=== PATIENT | male | born 1950 | race Caucasian/White ===

== ENCOUNTER 2016-10-22 03:15 | Emergency (ER) | payer MEDICARE, MEDICAID ==
[2016-10-22] MEDS ORDERED: Lorazepam 2 MG/ML VIAL ONE (03:49)
[2016-10-22] MEDS ORDERED: Sodium Chloride 0.9% 500 ML ONE (03:53)
[2016-10-22 04:06] LABS: ALT (SGPT) 101 U/L (0-55); AST (SGOT) 108 U/L (5-34); Albumin 4.4 g/dL (3.4-4.8); Alkaline Phosphatase 101 U/L (40-150); Anion Gap 20 mmol/L (10-20); BUN (Urea Nitrogen) 15 mg/dL (8.4-25.7); Calc. Creatinine Clearance 0 mL/min (70-130); Calcium 9.3 mg/dL (7.8-10.44); Carbon Dioxide 17 mmol/L (23-31); Chloride 109 mmol/L (98-107); Estimated GFR-MDRD 66; Globulin 3.9 g/dL (2.4-3.5); Glucose 100 mg/dL (80-115); Potassium 4.3 mmol/L (3.5-5.1); Protein, Total 8.3 g/dL (5.8-8.1); Sodium 142 mmol/L (136-145)
[2016-10-22 04:10] LABS: CKMB 1.1 ng/mL (0-6.6); Troponin I Less than 0.010 ng/mL (< 0.028)
[2016-10-22 04:14] LABS: Band 9 % (5-11); Eosinophils 9 % (0-10); Hemoglobin 13.4 g/dL (14.0-18.0); Lymphocytes 36 % (21-51); MDiff Complete? YES; Mean Corpuscular Volume 96.9 fl (80.0-94.0); Mean Platelet Volume 8.6 fL (7.4-10.4); Monocytes 8 % (0-10); Neutrophil 38 % (42-75); PLT Morphology Comment Appears Adequate; Platelet Count 170 thou/uL (130-400); RBC Distribution Width 14.3 % (11.5-14.5); RBC Morphology Normal; Red Blood Cell (RBC) Count 4.08 mill/uL (4.70-6.10); White Blood Cell (WBC) Count 6.7 thou/uL (4.8-10.8)
--- NOTE | 2016-10-22 08:02 | RAD ---
PORTABLE CHEST: Date: 10/22/16 HISTORY: Chest pain. FINDINGS: Lungs are clear. No infiltrate seen. Vascular markings are normal. Heart and mediastinum unremarkabl e. IMPRESSION: No acute findings. POS: [facility]
== END 2016-10-22 06:45 | disposition home or self-care (01) ==
LOC: NAV ERS 03:15
DX: R07.9 Chest pain, unspecified (principal); F10.10 Alcohol abuse, uncomplicated; I25.10 Atherosclerotic heart disease of native coronary artery without angina pectoris; K74.60 Unspecified cirrhosis of liver; B19.20 Unspecified viral hepatitis C without hepatic coma; J44.9 Chronic obstructive pulmonary disease, unspecified; F17.210 Nicotine dependence, cigarettes, uncomplicated; Z79.899 Other long term (current) drug therapy
CPT/HCPCS: 71010; 80053; 80307; 82553; 84484; 85025; 85379; 93005; 96361; 96374; J2060; J7050

== ENCOUNTER 2016-10-23 18:14 | Emergency (ER) | payer MEDICARE, OTHER ==
[2016-10-23] MEDS ORDERED: Lorazepam 2 MG/ML VIAL ONE (18:48)
[2016-10-23] MEDS ORDERED: Sodium Chloride 0.9% 1,000 ML ONE (18:49)
--- NOTE | 2016-10-23 19:00 | RAD ---
AP VIEW OF THE CHEST: 10/23/16 INDICATION: Tachycardia and heart palpitations. IMPRESSION: No acute cardiopulmonary abnormality. The examination is not appreciably changed from comparison carmine ed 10/22/16. POS: [facility]
[2016-10-23 19:29] LABS: ALT (SGPT) 75 U/L (0-55); AST (SGOT) 58 U/L (5-34); Alcohol Less than 10 mg/dL (Less than 10); Alkaline Phosphatase 88 U/L (40-150); Anion Gap 16 mmol/L (10-20); BUN (Urea Nitrogen) 16 mg/dL (8.4-25.7); Calc. Creatinine Clearance 0 mL/min (70-130); Calcium 9.5 mg/dL (7.8-10.44); Carbon Dioxide 19 mmol/L (23-31); Chloride 108 mmol/L (98-107); Estimated GFR-MDRD 89; Globulin 3.5 g/dL (2.4-3.5); Glucose 115 mg/dL (80-115); Magnesium 2.3 mg/dL (1.6-2.6); Potassium 4.1 mmol/L (3.5-5.1); Protein, Total 7.5 g/dL (5.8-8.1); Sodium 139 mmol/L (136-145)
[2016-10-23 19:48] LABS: Band 4 % (5-11); Lymphocytes 35 % (21-51); MDiff Complete? YES; Mean Corpuscular HGB CONC 34.9 g/dL (32.0-36.0); Mean Corpuscular Hemoglobin 33.5 pg (27.0-31.0); Mean Corpuscular Volume 95.7 fl (80.0-94.0); Mean Platelet Volume 8.5 fL (7.4-10.4); Monocytes 5 % (0-10); Neutrophil 55 % (42-75); PLT Morphology Comment Appears Adequate; Platelet Count 167 thou/uL (130-400); RBC Distribution Width 13.9 % (11.5-14.5); RBC Morphology Normal; Red Blood Cell (RBC) Count 3.59 mill/uL (4.70-6.10); White Blood Cell (WBC) Count 6.9 thou/uL (4.8-10.8)
[2016-10-23 19:54] LABS: Bilirubin Negative (Negative); Blood, Urine Negative (Negative); Clarity Clear (Clear); Glucose, Urine (Dipstick) Negative (Negative); Leukocyte Negative (Negative); Nitrite Negative (Negative); Protein, Urine (Dipstick) Negative (Neg-Trace); pH, Urine 5.5 (5.0-9.0)
[2016-10-23 19:55] LABS: Specific Gravity, Urine 1.004 (1.002-1.036)
[2016-10-23 20:02] LABS: Cocaine Metabolite Screen Detected (NotDetected); Methamphetamine Not Detected (NotDetected); Opiate Screen Not Detected (NotDetected); Phencyclidine (PCP) Not Detected (NotDetected); THC/Cannabinoid Screen Not Detected (NotDetected)
[2016-10-23 20:03] LABS: Amphetamine Not Detected (NotDetected); Barbiturates Screen Not Detected (NotDetected); Benzodiazepine Screen Not Detected (NotDetected); Medtox Control Line Valid? VALID (VALID); Methadone Not Detected (NotDetected); Oxycodone Screen Not Detected (NotDetected); Tricyclic Screen Not Detected (NotDetected)
[2016-10-23 20:26] LABS: Troponin I Less than 0.010 ng/mL (< 0.028)
== END 2016-10-23 23:31 | disposition home or self-care (01) ==
LOC: NAV ERS 18:14
DX: F10.10 Alcohol abuse, uncomplicated (principal); F14.10 Cocaine abuse, uncomplicated; F41.9 Anxiety disorder, unspecified; Z79.899 Other long term (current) drug therapy; I25.10 Atherosclerotic heart disease of native coronary artery without angina pectoris; I10 Essential (primary) hypertension; J44.9 Chronic obstructive pulmonary disease, unspecified; F17.210 Nicotine dependence, cigarettes, uncomplicated
CPT/HCPCS: 71010; 80053; 80306; 80307; 81003; 83735; 83880; 84443; 84484; 85025; 93005; 96361; 96374; J2060; J7050

== ENCOUNTER 2016-10-25 23:49 | Emergency (ER) | payer MEDICARE, MEDICAID ==
[2016-10-26 00:45] LABS: #Basophils 0.1 thou/uL (0.0-0.2); #Eosinphils 0.3 thou/uL (0.0-0.7); #Lymphocytes 3.8 thou/uL (1.20-3.40); #Monocytes 0.8 thou/uL (0.11-0.59); #Neutrophils 3.2 thou/uL (1.40-6.50); %Basophils 1.3 % (0.0-1.0); %Eosinophils 3.7 % (0.0-10.0); %Lymphocytes 46.5 % (21.0-51.0); %Monocytes 9.2 % (0.0-10.0); %Neutrophils 39.3 % (42.0-75.0); Hemoglobin 12.3 g/dL (14.0-18.0); Mean Corpuscular HGB CONC 34.5 g/dL (32.0-36.0); Mean Corpuscular Hemoglobin 33.1 pg (27.0-31.0); Platelet Count 167 thou/uL (130-400); RBC Distribution Width 13.4 % (11.5-14.5); Red Blood Cell (RBC) Count 3.71 mill/uL (4.70-6.10); White Blood Cell (WBC) Count 8.2 thou/uL (4.8-10.8)
[2016-10-26 01:07] LABS: CKMB 1.3 ng/mL (0-6.6); Troponin I Less than 0.010 ng/mL (< 0.028)
[2016-10-26 01:11] LABS: AST (SGOT) 53 U/L (5-34); Alkaline Phosphatase 90 U/L (40-150); Anion Gap 16 mmol/L (10-20); BUN (Urea Nitrogen) 14 mg/dL (8.4-25.7); Bilirubin, Total 0.8 mg/dL (0.2-1.2); Calc. Creatinine Clearance 0 mL/min (70-130); Calcium 9.3 mg/dL (7.8-10.44); Carbon Dioxide 20 mmol/L (23-31); Chloride 106 mmol/L (98-107); Estimated GFR-MDRD 80; Globulin 3.3 g/dL (2.4-3.5); Potassium 3.9 mmol/L (3.5-5.1); Protein, Total 7.3 g/dL (5.8-8.1); Sodium 138 mmol/L (136-145)
[2016-10-26 01:13] LABS: ALT (SGPT) 59 U/L (0-55); Glucose 98 mg/dL (80-115)
== END 2016-10-26 01:25 | disposition home or self-care (01) ==
LOC: NAV ERS 23:49
DX: J44.9 Chronic obstructive pulmonary disease, unspecified (principal); F41.9 Anxiety disorder, unspecified; F10.10 Alcohol abuse, uncomplicated; I10 Essential (primary) hypertension; F32.9 Major depressive disorder, single episode, unspecified; F17.210 Nicotine dependence, cigarettes, uncomplicated; Z79.899 Other long term (current) drug therapy
CPT/HCPCS: 36415; 80053; 82553; 84484; 85025; 93005; J7620

== ENCOUNTER 2016-10-30 12:01 | Emergency (ER) | payer MEDICARE, MEDICAID ==
[2016-10-30] MEDS ORDERED: cloNIDine HCl 0.1 MG TAB ONE (12:19)
== END 2016-10-30 12:57 | disposition home or self-care (01) ==
LOC: NAV ERS 12:01
DX: I10 Essential (primary) hypertension (principal); I25.10 Atherosclerotic heart disease of native coronary artery without angina pectoris; B19.20 Unspecified viral hepatitis C without hepatic coma; J44.9 Chronic obstructive pulmonary disease, unspecified; F17.210 Nicotine dependence, cigarettes, uncomplicated
CPT/HCPCS: 99283

== ENCOUNTER 2016-10-31 22:57 | Emergency (ER) | payer MEDICARE, MEDICAID | END 2016-11-01 00:45 | disposition home or self-care (01) | LOC: NAV ERS 22:57 | DX: F10.129 Alcohol abuse with intoxication, unspecified (principal); I25.10 Atherosclerotic heart disease of native coronary artery without angina pectoris; I10 Essential (primary) hypertension; G40.909 Epilepsy, unspecified, not intractable, without status epilepticus; J44.9 Chronic obstructive pulmonary disease, unspecified; K74.60 Unspecified cirrhosis of liver; F32.9 Major depressive disorder, single episode, unspecified; F41.9 Anxiety disorder, unspecified; Z87.891 Personal history of nicotine dependence; Z86.711 Personal history of pulmonary embolism; Z79.899 Other long term (current) drug therapy | CPT/HCPCS: 99283 ==

== ENCOUNTER 2016-11-04 10:22 | Emergency (ER) | payer MEDICARE, OTHER ==
[2016-11-04 11:33] LABS: #Basophils 0.1 thou/uL (0.0-0.2); #Eosinphils 0.2 thou/uL (0.0-0.7); #Lymphocytes 1.7 thou/uL (1.20-3.40); #Monocytes 0.4 thou/uL (0.11-0.59); #Neutrophils 4.5 thou/uL (1.40-6.50); %Lymphocytes 24.6 % (21.0-51.0); %Monocytes 5.2 % (0.0-10.0); %Neutrophils 65.3 % (42.0-75.0); Hemoglobin 14.1 g/dL (14.0-18.0); Mean Corpuscular HGB CONC 33.9 g/dL (32.0-36.0); Mean Corpuscular Hemoglobin 33.4 pg (27.0-31.0); Mean Corpuscular Volume 98.5 fl (80.0-94.0); Mean Platelet Volume 9.3 fL (7.4-10.4); Platelet Count 181 thou/uL (130-400); RBC Distribution Width 13.7 % (11.5-14.5); Red Blood Cell (RBC) Count 4.21 mill/uL (4.70-6.10); White Blood Cell (WBC) Count 6.9 thou/uL (4.8-10.8)
[2016-11-04 11:49] LABS: Acetaminophen Less than 3.0 mcg/mL (10.0-30.0); Alcohol Less than 10 mg/dL (Less than 10); Salicylate Less than 5.0 mg/dL (15.0-30.0)
[2016-11-04 11:51] LABS: ALT (SGPT) 45 U/L (0-55); AST (SGOT) 48 U/L (5-34); Albumin 4.2 g/dL (3.4-4.8); Alkaline Phosphatase 98 U/L (40-150); Anion Gap 19 mmol/L (10-20); BUN (Urea Nitrogen) 8 mg/dL (8.4-25.7); Bilirubin, Total 1.6 mg/dL (0.2-1.2); Calc. Creatinine Clearance 0 mL/min (70-130); Calcium 9.7 mg/dL (7.8-10.44); Carbon Dioxide 20 mmol/L (23-31); Chloride 105 mmol/L (98-107); Estimated GFR-MDRD 83; Glucose 119 mg/dL (80-115); Potassium 4.3 mmol/L (3.5-5.1); Protein, Total 8.2 g/dL (5.8-8.1); Sodium 140 mmol/L (136-145)
--- NOTE | 2016-11-04 11:53 | RAD ---
PORTABLE CHEST; Date: 11/04/16 HISTORY: Shortness of breath. COMPARISON: 10/23/16. FINDINGS: Heart size is within normal limits. There are atherosclerotic changes of the aorta. The lungs are cl ear of infiltrative process. IMPRESSION: No active intrathoracic disease. POS: [facility]
[2016-11-04 11:54] LABS: CKMB 2.1 ng/mL (0-6.6); Troponin I Less than 0.010 ng/mL (< 0.028)
[2016-11-04 12:29] LABS: Bilirubin Negative (Negative); Blood, Urine Negative (Negative); Clarity Clear (Clear); Glucose, Urine (Dipstick) Negative (Negative); Leukocyte Negative (Negative); Nitrite Negative (Negative); Protein, Urine (Dipstick) > or equal to 300 mg/dL (Neg-Trace)
[2016-11-04 12:51] LABS: Bacteria/HPF None Seen HPF (None Seen); RBC/HPF 0-3 HPF (0-3); Squamous Epithelial 0-3 HPF (0-3); WBC/HPF 0-3 HPF (0-3)
[2016-11-04 13:29] LABS: Amphetamine Not Detected (NotDetected); Barbiturates Screen Not Detected (NotDetected); Benzodiazepine Screen Not Detected (NotDetected); Cocaine Metabolite Screen Detected (NotDetected); Medtox Control Line Valid? VALID (VALID); Methadone Not Detected (NotDetected); Methamphetamine Not Detected (NotDetected); Opiate Screen Not Detected (NotDetected); Oxycodone Screen Not Detected (NotDetected); Phencyclidine (PCP) Not Detected (NotDetected); THC/Cannabinoid Screen Not Detected (NotDetected); Tricyclic Screen Not Detected (NotDetected)
== END 2016-11-04 13:05 | disposition home or self-care (01) ==
LOC: NAV ERS 10:22
DX: I10 Essential (primary) hypertension (principal); F14.10 Cocaine abuse, uncomplicated; I25.10 Atherosclerotic heart disease of native coronary artery without angina pectoris; K74.60 Unspecified cirrhosis of liver; J44.9 Chronic obstructive pulmonary disease, unspecified; Z86.711 Personal history of pulmonary embolism; Z79.899 Other long term (current) drug therapy
CPT/HCPCS: 71010; 80053; 80306; 80307; 81003; 81015; 82553; 83880; 84484; 85025; 93005

== ENCOUNTER 2016-11-23 12:27 | Outpatient (CLI) | payer MEDICARE, OTHER ==
[2016-11-23 13:53] LABS: Anion Gap 14 mmol/L (10-20); BUN (Urea Nitrogen) 22 mg/dL (8.4-25.7); Calc. Creatinine Clearance 0 mL/min (70-130); Calcium 8.2 mg/dL (7.8-10.44); Carbon Dioxide 24 mmol/L (23-31); Chloride 101 mmol/L (98-107); Estimated GFR-MDRD Greater than 90; Glucose 176 mg/dL (80-115); Potassium 4.3 mmol/L (3.5-5.1); Sodium 135 mmol/L (136-145); White Blood Cell (WBC) Count 18.2 thou/uL (4.8-10.8)
[2016-11-23 13:54] LABS: #Neutrophils 16.6 thou/uL (1.40-6.50); %Basophils 1.5 % (0.0-1.0); %Eosinophils 0.1 % (0.0-10.0); %Lymphocytes 3.2 % (21.0-51.0); %Monocytes 4.3 % (0.0-10.0); %Neutrophils 90.9 % (42.0-75.0); Hemoglobin 10.4 g/dL (14.0-18.0); Mean Corpuscular HGB CONC 33.1 g/dL (32.0-36.0); Mean Corpuscular Hemoglobin 32.3 pg (27.0-31.0); Mean Corpuscular Volume 97.5 fL (80.0-94.0); Mean Platelet Volume 9.8 fL (7.4-10.4); Platelet Count 146 thou/uL (130-400); RBC Distribution Width 13.1 % (11.5-14.5); Red Blood Cell (RBC) Count 3.23 mill/uL (4.70-6.10)
[2016-11-23 13:55] LABS: #Basophils 0.3 thou/uL (0.0-0.2); #Monocytes 0.8 thou/uL (0.11-0.59); MDiff Complete? YES
[2016-11-23 14:16] LABS: Bilirubin, Total 1.4 mg/dL (0.2-1.2)
[2016-11-23 14:17] LABS: ALT (SGPT) 558 U/L (8-55); AST (SGOT) 205 U/L (5-34); Albumin 2.6 g/dL (3.4-4.8); Alkaline Phosphatase 158 U/L (40-150); Globulin 2.6 g/dL (2.4-3.5); Protein, Total 5.2 g/dL (5.8-8.1)
[2016-11-23 14:20] LABS: Band 11 % (5-11); Lymphocytes 8 % (21-51); Monocytes 7 % (0-10); Neutrophil 74 % (42-75)
[2016-11-23 14:21] LABS: Anisocytosis SLIGHT = 6-15 cells (100X) (0-5/hpf); Hypochromia SLIGHT = 6-15 cells (100X) (0-5/hpf); PLT Morphology Comment Appears Adequate
== END 2016-11-23 12:28 | disposition home or self-care (01) ==
LOC: NAV LABSP 12:27
PROVIDERS: ATTEND Family Medicine
DX: R06.02 Shortness of breath (principal)
CPT/HCPCS: 36415; 80053; 85025

== ENCOUNTER 2016-11-27 07:21 | Outpatient (CLI) | payer MEDICARE, OTHER ==
[2016-11-27 08:36] LABS: ALT (SGPT) 317 U/L (8-55); AST (SGOT) 132 U/L (5-34); Albumin 2.4 g/dL (3.4-4.8); Alkaline Phosphatase 165 U/L (40-150); Bilirubin, Direct 1.2 mg/dL (0.1-0.3); Bilirubin, Total 1.6 mg/dL (0.2-1.2); Protein, Total 5.1 g/dL (5.8-8.1)
== END 2016-11-27 07:22 | disposition home or self-care (01) ==
LOC: NAV LABSP 07:21
PROVIDERS: ATTEND Family Medicine
DX: B19.20 Unspecified viral hepatitis C without hepatic coma (principal)
CPT/HCPCS: 36415; 80076

== ENCOUNTER 2016-12-13 07:21 | Outpatient (CLI) | payer MEDICARE, MEDICAID ==
[2016-12-13 09:46] LABS: Blood, Urine Negative (Negative); Clarity Clear (Clear); Glucose, Urine (Dipstick) 100 mg/dL (Negative); Leukocyte Trace (Negative); Nitrite Negative (Negative); Protein, Urine (Dipstick) Negative (Neg-Trace); Specific Gravity, Urine 1.015 (1.005-1.030); Urobilinogen > or = 8.0 mg/dL (0.2-1.0); pH, Urine 5.5 (5.0-9.0)
[2016-12-13 09:49] LABS: Bilirubin Negative (Negative); Icto Negative (Negative)
[2016-12-13 10:28] LABS: Bacteria/HPF 1+ HPF (None Seen); RBC/HPF None Seen HPF (0-3); Squamous Epithelial 0-3 HPF (0-3); WBC/HPF 0-3 HPF (0-3)
[2016-12-13 10:29] LABS: Hyaline Casts/LPF 0-3 HYALINE CAST LPF (0-3 Hyaline); Other Microscopic Description NO
== END 2016-12-13 07:22 | disposition home or self-care (01) ==
LOC: NAV LABSP 07:21
PROVIDERS: ATTEND Family Medicine
DX: G47.51 Confusional arousals (principal)
CPT/HCPCS: 81001